=== PATIENT | male | born 1935 | race Caucasian/White ===

== ENCOUNTER 2016-09-25 07:55 | Day surgery (SDC) | payer MEDICARE, BC ==
--- NOTE | ~2016-09-25 | EGD ---
EGD REPORT [facility] [address] [place] [id number] NAME: SHEILA SALTER : [birth year] STATUS : REG [facility]#: [id number] AGE: 81 ADM/REG DATE : 09/25/16 MR#: [id number] REPORT SERV DATE: 09/25/16 DICTATED BY: EMY BUENROSTRO DATE: 09/25/16 REPORT STATUS : Draft TRANSCRIBED BY: [facility] DATE: 09/25/16 Endoscopy Center Patient Name: Sheila Salter Date of : 1935 Attending MD: EMY BUENROSTRO MD Procedure Date No Time: 09/25/2016 Procedure: Upper GI endoscopy Indications: Heartburn; gram neg sepsis unknown source; no acid suppression. Patient Profile: Informed consent was obtained from the patient by me prior to the procedure. Risks, benefits, and alternatives were discussed including the risk of bleeding, perforation, infection, reaction to medicine, missed lesion, and cardiopulmonary complications. Referring MD: DIAN ABREU JR. Medicines: Monitored Anesthesia Care Complications: No immediate complications. Procedure: Pre-Anesthesia Assessment: - ASA Grade Assessment: II - A patient with mild systemic disease. After obtaining informed consent, the endoscope was passed under direct vision. Throughout the procedure, the patient's blood pressure, pulse, and oxygen saturations were monitored continuously. The GIF H190 [id number] was introduced through the mouth, and advanced to the third part of duodenum. The endoscope was withdrawn with careful examination all mucosal surfaces including retroflexion stomach. The upper GI endoscopy was accomplished without difficulty. The patient tolerated the procedure well. Findings: The examined duodenum was normal. Patchy mild inflammation characterized by adherent blood was found in the gastric antrum. Biopsies were taken with a cold forceps for histology. The gastric body was normal. Biopsies were taken with a cold forceps for histology. The cardia and gastric fundus (on retroflexion) were normal. The examined esophagus was normal. The esophagus and gastroesophageal junction were examined with white light. There was no visual evidence of Hodge's esophagus. Impression: - Normal examined duodenum. - Gastritis. Biopsied. EGD REPORT [address] [address] NAME: SHEILA SALTER : [birth year] STATUS : REG [facility]#: [id number] AGE: 81 ADM/REG DATE : 09/25/16 MR#: [id number] REPORT SERV DATE: 09/25/16 DICTATED BY: EMY BUENROSTRO DATE: 09/25/16 REPORT STATUS : Draft TRANSCRIBED BY: [employer] DATE: 09/25/16 - Normal gastric body. Biopsied. - Normal cardia and gastric fundus. - Normal esophagus. - There is no endoscopic evidence of Hodge's esophagus. Recommendation: - Patient has a contact number available for emergencies. The signs and symptoms of potential delayed complications were discussed with the patient. Return to normal activities tomorrow. Written discharge instructions were provided to the patient. - Regular diet. - Continue present medications. - Await pathology results. - Start Nexium OTC daily. Procedure Code(s): --- Professional --- 07848, Esophagogastroduodenoscopy, flexible, transoral; with biopsy, single or multiple Diagnosis Code(s): --- Professional --- K29.70, Gastritis, unspecified, without bleeding R12, Heartburn CPT copyright 2013 [employer] [employer]. All rights reserved. The codes documented in this report are preliminary and upon lidar analyst review may be revised to meet current compliance requirements. EMY BUENROSTRO MD 09/25/2016 9:25 AM This report has been signed electronically. Number of Addenda: 0 Note Initiated On: 09/25/2016 9:11 AM Scope Withdrawal Time 0 hours 0 minutes 0 seconds [id number] [place] [id number]
--- NOTE | ~2016-09-25 | EGD ---
EGD REPORT [facility] [address] [place]. [id number] NAME: SHEILA SALTER : 33 STATUS : REG [facility]#: [id number] AGE: 81 ADM/REG DATE : 09/25/16 MR#: [id number] REPORT SERV DATE: 09/25/16 DICTATED BY: EMY BUENROSTRO DATE: 09/25/16 REPORT STATUS : Draft [facility]IBED [facility]: [facility] DATE: 09/25/16 Endoscopy Center Patient Name: Sheila Salter Date of : 1935 Attending MD: EMY BUENROSTRO MD Procedure Date No Time: 09/25/2016 Procedure: Colonoscopy Indications: High risk colon cancer surveillance: Personal history of sessile serrated colon polyp (less than 10 mm in size) with no dysplasia; gram neg sepsis unknown source. Patient Profile: Informed consent was obtained from the patient by me prior to the procedure. Risks, benefits, and alternatives were discussed including the risk of bleeding, perforation, infection, reaction to medicine, missed lesion, and cardiopulmonary complications. Referring MD: DIAN ABREU JR. Medicines: Monitored Anesthesia Care Complications: No immediate complications. Procedure: Pre-Anesthesia Assessment: - ASA Grade Assessment: II - A patient with mild systemic disease. After I obtained informed consent, the scope was passed under direct vision. Throughout the procedure, the patient's blood pressure, pulse, and oxygen saturations were monitored continuously. The PCF [id number] was introduced through the anus and advanced to the cecum, identified by appendiceal orifice and ileocecal valve. The colonoscope was slowly withdrawn with careful examination all mucosal surfaces including specific attention around flexures and tip deflection behind folds; retroflexion performed in rectum. The colonoscopy was performed without difficulty. The patient tolerated the procedure well. The quality of the bowel preparation was adequate. The ileocecal valve, appendiceal orifice and rectum were photographed. Findings: A sessile polyp was found in the transverse colon. The polyp was 5 mm in size. The polyp was removed with a cold biopsy forceps. Resection and retrieval were complete. Multiple medium-mouthed diverticula were found in the sigmoid colon and in the descending colon. Internal hemorrhoids were found during retroflexion and were mild. Impression: - One 5 mm polyp in the transverse colon. Resected and EGD REPORT [place] [id number] [facility] [place]. [address] NAME: SHEILA SALTER : [birth year] STATUS : REG [facility]#: [id number] AGE: 81 ADM/REG DATE : 09/25/16 MR#: [id number] REPORT SERV DATE: 09/25/16 DICTATED BY: EMY BUENROSTRO DATE: 09/25/16 REPORT STATUS : Draft TRANSCRIBED BY: [employer] DATE: 09/25/16 retrieved. - Diverticulosis in the sigmoid colon and in the descending colon. - Internal hemorrhoids. Recommendation: - Patient has a contact number available for emergencies. The signs and symptoms of potential delayed complications were discussed with the patient. Return to normal activities tomorrow. Written discharge instructions were provided to the patient. - Regular diet. - Continue present medications. - Await pathology results. - Repeat colonoscopy is not recommended for surveillance based on age. Procedure Code(s): --- Professional --- 84634, Colonoscopy, flexible, proximal to splenic flexure; with biopsy, single or multiple Diagnosis Code(s): --- Professional --- D12.3, Benign neoplasm of transverse colon K57.30, Diverticulosis of large intestine without perforation or abscess without bleeding Z86.010, Personal history of colonic polyps CPT copyright 2013 [employer]. All rights reserved. The codes documented in this report are preliminary and upon irrigation equipment installer review may be revised to meet current compliance requirements. EMY BUENROSTRO MD 09/25/2016 9:52 AM This report has been signed electronically. Number of Addenda: 0 Note Initiated On: 09/25/2016 9:04 AM Scope Withdrawal Time 0 hours 10 minutes 23 seconds [id number] [place] [id number]
[~2016-09-25 07:55] MED LIST: ARMOUR THYRO180 MG PO; ARMOUR THYRO60 MG PO; B121000P IM; COUMADIN6 MG PO; DSS PO; ELIQUIS 2.5 MG2.5 MG PO; FLAG500TAB PO; LEVAQUIN750 MG PO; MAXIMUM D3 PO; NORCO1 TA1 PO; PROSTATE PLUS PO; ZOFRAN4 PO
== END 2016-09-25 23:59 | disposition home or self-care (01) ==
LOC: DMU 07:55
PROVIDERS: Internal Medicine Gastroenterology
PROC: 0DB68ZX Excision of Stomach, Via Natural or Artificial Opening Endoscopic, Diagnostic (ICD-10-PCS; principal; 2016-09-25 09:00)
PROC: 0DBL8ZZ Excision of Transverse Colon, Via Natural or Artificial Opening Endoscopic (ICD-10-PCS; 2016-09-25 09:00)
DX: Z12.11 Encounter for screening for malignant neoplasm of colon (principal); D12.3 Benign neoplasm of transverse colon; K29.50 Unspecified chronic gastritis without bleeding; K57.30 Diverticulosis of large intestine without perforation or abscess without bleeding; K64.8 Other hemorrhoids; Z86.010 Personal history of colon polyps; Z85.09 Personal history of malignant neoplasm of other digestive organs; Z85.850 Personal history of malignant neoplasm of thyroid; Z86.718 Personal history of other venous thrombosis and embolism; Z79.01 Long term (current) use of anticoagulants; Z79.899 Other long term (current) drug therapy
CPT/HCPCS: 88305